=== PATIENT | female | born 1955 | race Caucasian/White ===

== ENCOUNTER → 2017-06-12 | Outpatient (CLI) | payer MEDICARE, MEDICAID ==
--- NOTE | 2017-06-13 08:50 | RADIOLOGY REPORT PS360 ---
CT ABD PELVIS W/ CONTRAST CLINICAL INDICATION: Weight loss WEIGHT LOSS ORDERING PHYSICIAN: Gerry Perez MD PATIENT AGE: 61 years COMPARISON: None TECHNIQUE: Axial images obtained with sagittal and coronal reformats. PROCEDURE: Oral Contrast: Redicat IV Contrast: 75 mL's [id number]. FINDINGS: The distal esophagus is dilated with the air-fluid level. There is an 8 mm noncalcified nodule in the right lung base posteriorly with mild bibasilar atelectatic or fibrotic change. Liver, spleen, adrenal glands, but unremarkable appearance. The pancreas is atrophic. No ductal dilatation. No calcified gallstones apparent. There is mild prominence of the renal pelves on both sides. No obstructing ureteral calculus apparent. There is a 2.37 m right renal cyst. There is a marked amount retained colonic feces throughout the colon with rectal fecal impaction. The rectum measures up to 8 cm in transverse dimension with minimal thickening of the rectal wall which is nonspecific. There is no evidence of small bowel obstruction or free air. No focal inflammatory changes apparent. No evidence of appendicitis or diverticulitis. Urinary bladder is distended. There is increased soft tissue density along the posterior aspect of the urinary bladder wall between the urinary bladder and the sigmoid colon on the right of questionable etiology and clinical significance and may be related to artifact flat uterus or adnexa. A normal uterus is not identified. Has the patient had prior hysterectomy?. No abnormal fluid collection. No acute bony anomalies. IMPRESSION: 1. Marked amount of retained colonic feces with rectal fecal impaction. There is mild thickening of the rectum. 2. Dilated esophagus with air-fluid level. Distal esophageal obstruction or spasm is a consideration. 3. 8 mm noncalcified nodule right lung base indeterminate. Consider 6 month while. 4. No acute intra-abdominal or pelvic pathology apparent
== END ==
LOC: RAD 08:34
DX: R63.4 Abnormal weight loss (principal)
CPT/HCPCS: Q9967